=== PATIENT | female | born 1990 | race Caucasian/White ===

== ENCOUNTER 2018-12-04 08:00 | Outpatient (CLI) | payer MEDICAID ==
[2018-12-04 21:47] LABS: CANDIDA KRUSEI DNA NEGATIVE (NEGATIVE)
[2018-12-04 21:48] LABS: CANDIDA GROUP DNA NEGATIVE (NEGATIVE); TRICHOMONAS VAGINALIS DNA NEGATIVE (NEGATIVE)
== END 2018-12-04 23:59 | disposition home or self-care (01) ==
LOC: LAB.R 08:00
PROVIDERS: ATTEND Obstetrics & Gynecology
DX: N89.9 Noninflammatory disorder of vagina, unspecified (principal); F41.1 Generalized anxiety disorder
CPT/HCPCS: 36415; 80048; 84443; 85025; 87661; 87801

== ENCOUNTER 2018-12-04 08:00 | Outpatient (CLI) | payer MEDICAID ==
[2018-12-04 19:05] LABS: BASOPHILS % (AUTO) 0.6 %; EOSINOPHILS # (AUTO) 0.2 10^3/uL (0.0-0.7); EOSINOPHILS % (AUTO) 2.7 %; HGB - HEMOGLOBIN 14.7 g/dL (12.0-16.0); LYMPHOCYTES # (AUTO) 2.2 10^3/uL (1.5-3.5); LYMPHOCYTES % (AUTO) 28.1 %; MEAN CORPUSCULAR HEMOGLOBIN 31.1 pg (27.0-31.0); MEAN CORPUSCULAR HGB CONC 33.8 g/dL (32.0-36.0); MEAN PLATELET VOLUME 8.2 fL (7.9-10.8); MONOCYTES # (AUTO) 0.6 10^3/uL (0.0-1.0); MONOCYTES % (AUTO) 7.8 %; NEUTROPHILS # (AUTO) 4.9 10^3/uL (1.5-6.6); NEUTROPHILS % (AUTO) 60.8 %; PLT - PLATELET COUNT 327 10^3/uL (130-450); RED BLOOD COUNT 4.74 10^6/uL (4.20-5.40); RED CELL DISTRIBUTION WIDTH 12.9 % (12.0-15.0)
[2018-12-04 19:20] LABS: CALCIUM 9.7 mg/dL (8.5-10.3); CREATININE 0.6 mg/dL (0.4-1.0)
== END 2018-12-04 23:59 | disposition home or self-care (01) ==
LOC: LAB.N 08:00
PROVIDERS: ATTEND Physician Assistant Medical
DX: F41.1 Generalized anxiety disorder (principal)
CPT/HCPCS: 36415; 80048; 84443; 85025

== ENCOUNTER 2019-08-22 12:20 | Outpatient (CLI) | payer MEDICAID ==
--- NOTE | 2019-08-22 16:57 | XRAY Report ---
Reason: SHOULDER PAIN, LEFT Procedure Date: 08/22/2019 Accession Number: [id number] / [id number] Procedure: XR - Shoulder 3 View LT CPT Code: Final Report FULL RESULT: EXAM: LEFT SHOULDER RADIOGRAPHY EXAM DATE: 08/22/2019 12:46 PM. CLINICAL HISTORY: Chronic left shoulder pain. No injury. COMPARISON: None. TECHNIQUE: 3 views. FINDINGS: Bones: No fracture or bone destructive process. Joints: No subluxation. Glenohumeral and acromioclavicular joints are preserved. Soft tissues: No periarticular calcifications. IMPRESSION: 1. Negative. No significant bony or articular abnormality identified. [facility]
== END 2019-08-22 12:21 | disposition home or self-care (01) ==
LOC: DI 12:20
PROVIDERS: ATTEND Physician Assistant Medical
DX: M25.512 Pain in left shoulder (principal)

== ENCOUNTER 2019-08-30 08:00 | Outpatient (CLI) | payer MEDICAID ==
[2019-08-30 18:44] LABS: BILIRUBIN,URINE NEGATIVE (NEGATIVE); GLUCOSE, URINE (UA) 250 mg/dL (NEGATIVE); KETONES,URINE (UA) NEGATIVE (NEGATIVE); LEUKOCYTE ESTERASE, URINE MODERATE (NEGATIVE); NITRITE,URINE POSITIVE (NEGATIVE); OCCULT BLOOD,URINE LARGE (NEGATIVE)
[2019-08-30 19:10] LABS: CLARITY,URINE HAZY (CLEAR)
[2019-08-30 19:11] LABS: BACTERIA,URINE Few /HPF (None Seen); SQUAMOUS EPITHELIAL CELL,UR MANY Squamous (<= Few); WBC CLUMPS,URINE PRESENT
== END 2019-08-30 23:59 | disposition home or self-care (01) ==
LOC: LAB.R 08:00
PROVIDERS: ATTEND Physician Assistant Medical
DX: R30.0 Dysuria (principal)
CPT/HCPCS: 81001; 81003; 87086

== ENCOUNTER 2019-09-20 09:58 | Outpatient (CLI) | payer MEDICAID ==
--- NOTE | 2019-09-20 13:54 | XRAY Report ---
Reason: LEFT KNEE PAIN Procedure Date: 09/20/2019 Accession Number: [id number] / [id number] Procedure: XR - Knee 3 View LT CPT Code: Final Report FULL RESULT: EXAM: LEFT KNEE RADIOGRAPHY EXAM DATE: 09/20/2019 10:19 AM. CLINICAL HISTORY: LEFT KNEE PAIN. COMPARISON: None. TECHNIQUE: 3 views. FINDINGS: Bones: Normal. No fractures or bone lesions. Joints: Normal. No effusion. No subluxations. Soft Tissues: Normal. No soft tissue swelling. IMPRESSION: Normal knee radiography. [facility]
== END 2019-09-20 09:59 | disposition home or self-care (01) ==
LOC: DI 09:58
PROVIDERS: ATTEND Physician Assistant Medical
DX: M25.562 Pain in left knee (principal)

== ENCOUNTER 2019-10-29 08:00 | Outpatient (CLI) | payer MEDICAID ==
[2019-10-29 18:03] LABS: BILIRUBIN,URINE NEGATIVE (NEGATIVE); GLUCOSE, URINE (UA) NEGATIVE (NEGATIVE); KETONES,URINE (UA) NEGATIVE (NEGATIVE); LEUKOCYTE ESTERASE, URINE SMALL (NEGATIVE); NITRITE,URINE NEGATIVE (NEGATIVE); OCCULT BLOOD,URINE TRACE-INTA (NEGATIVE); PH,URINE 6.5 PH (5.0-7.5); PROTEIN,URINE NEGATIVE (NEGATIVE); UROBILINOGEN,URINE 0.2 (NORMAL) E.U./dL (NORMAL)
[2019-10-29 18:04] LABS: CLARITY,URINE CLEAR (CLEAR)
[2019-10-29 18:11] LABS: BACTERIA,URINE None Seen /HPF (None Seen); RBC,URINE 0-5 /HPF (0-5); SQUAMOUS EPITHELIAL CELL,UR FEW Squamous (<= Few)
== END 2019-10-29 23:59 | disposition home or self-care (01) ==
LOC: LAB.R 08:00
PROVIDERS: ATTEND Nurse Practitioner
DX: R30.0 Dysuria (principal)
CPT/HCPCS: 81001; 81003; 87086

== ENCOUNTER 2019-10-30 08:00 | Outpatient (CLI) | payer MEDICAID ==
[2019-10-30 16:48] LABS: BASOPHILS % (AUTO) 0.5 %; EOSINOPHILS # (AUTO) 0.2 10^3/uL (0.0-0.7); EOSINOPHILS % (AUTO) 2.1 %; HGB - HEMOGLOBIN 15.6 g/dL (12.0-16.0); LYMPHOCYTES # (AUTO) 1.1 10^3/uL (1.5-3.5); LYMPHOCYTES % (AUTO) 14.7 %; MEAN CORPUSCULAR HEMOGLOBIN 31.4 pg (27.0-31.0); MEAN CORPUSCULAR HGB CONC 33.6 g/dL (32.0-36.0); MEAN CORPUSCULAR VOLUME 93.4 fL (81.0-99.0); MEAN PLATELET VOLUME 9.7 fL (7.9-10.8); MONOCYTES # (AUTO) 0.4 10^3/uL (0.0-1.0); MONOCYTES % (AUTO) 5.5 %; NEUTROPHILS % (AUTO) 76.8 %; PLT - PLATELET COUNT 337 10^3/uL (130-450); RED BLOOD COUNT 4.97 10^6/uL (4.20-5.40); RED CELL DISTRIBUTION WIDTH 12.5 % (12.0-15.0); WHITE BLOOD COUNT 7.8 x10^3/uL (4.8-10.8)
[2019-10-30 17:53] LABS: ALBUMIN 5.1 g/dL (3.2-5.5); ALBUMIN/GLOBULIN RATIO 1.8 (1.0-2.2); BILIRUBIN,TOTAL 0.9 mg/dL (0.2-1.0); CALCIUM 9.9 mg/dL (8.5-10.3); CREATININE 0.7 mg/dL (0.4-1.0)
== END 2019-10-30 23:59 | disposition home or self-care (01) ==
LOC: LAB.WCP 08:00
PROVIDERS: ATTEND Nurse Practitioner
DX: Z00.00 Encounter for general adult medical examination without abnormal findings (principal); F41.1 Generalized anxiety disorder
CPT/HCPCS: 36415; 80053; 84443; 85025

== ENCOUNTER 2019-11-03 02:16 | Outpatient (CLI) | payer MEDICAID | END 2019-11-03 02:17 | disposition EMS.NT | LOC: EMS 02:16 | PROVIDERS: ATTEND Surgery | DX: R42 Dizziness and giddiness (principal); F41.9 Anxiety disorder, unspecified ==

== ENCOUNTER 2019-11-29 10:30 | Outpatient (CLI) | payer MEDICAID | END 2019-11-29 23:59 | disposition home or self-care (01) | LOC: LAB.WCP 10:30 | PROVIDERS: ATTEND Family Medicine | DX: R30.0 Dysuria (principal) | CPT/HCPCS: 87086 ==

== ENCOUNTER 2020-03-03 11:50 | Outpatient (CLI) | payer MEDICAID | END 2020-03-03 23:59 | disposition home or self-care (01) | LOC: COV 11:50 | PROVIDERS: ATTEND Family Medicine | DX: R50.9 Fever, unspecified (principal); R05 Cough; M79.10 Myalgia, unspecified site; R53.83 Other fatigue; J02.9 Acute pharyngitis, unspecified; R43.9 Unspecified disturbances of smell and taste; R09.81 Nasal congestion; Z20.828 Contact with and (suspected) exposure to other viral communicable diseases ==

== ENCOUNTER 2020-07-01 12:43 | Outpatient (CLI) | payer MEDICAID ==
[2020-07-03 21:03] LABS: ANA SCREEN NEGATIVE (NEGATIVE)
== END 2020-07-01 12:44 | disposition home or self-care (01) ==
LOC: LAB 12:43
PROVIDERS: ATTEND Family Medicine
DX: M53.3 Sacrococcygeal disorders, not elsewhere classified (principal); M54.9 Dorsalgia, unspecified
CPT/HCPCS: 36415; 85651; 86038; 86140

== ENCOUNTER 2020-07-02 09:56 | Outpatient (CLI) | payer MEDICAID ==
--- NOTE | 2020-07-02 11:42 | XRAY Report ---
PROCEDURE: SI Joints INDICATIONS: BACK PAIN,SCOLIOSIS,SACROILIAC JOINT PAIN,BILAT TECHNIQUE: 3 views of the sacroiliac joints were acquired. COMPARISON: None FINDINGS: Bones: No bony erosions or ankylosis. No suspicious bony lesions. No fractures. Soft tissues: Overlying bowel gas pattern is normal. No suspicious soft tissue densities. IUD note d. IMPRESSION: No degenerative changes or other significant abnormality of the sacroiliac joints or sacrum. Reviewed by: Hudson Edgar MD on 07/02/2020 10:41 AM [facility] Approved by: Hudson Edgar MD on 07/02/2020 10:41 AM [facility] Station ID: [id number]
--- NOTE | 2020-07-02 11:48 | XRAY Report ---
PROCEDURE: Spine Scoliosis Study 2-3V INDICATIONS: BACK PAIN TECHNIQUE: Frontal and lateral standing views of the spine acquired. COMPARISON: None. FINDINGS: There is no significant scoliotic curvature in the thoracic or lumbar spine. Vertebral body height an d alignment are normal. Intervertebral disc spaces are congruent and maintained. No significant degen erative changes. No suspicious lytic or blastic osseous lesion. No evidence of pars defect. IMPRESSION: Unremarkable thoracic and lumbar spine regressed with no evidence of scoliosis or significant degener ative change. Reviewed by: Hudson Edgar MD on 07/02/2020 10:47 AM [facility] Approved by: Hudson Edgar MD on 07/02/2020 10:47 AM [facility] Station ID: [id number]
== END 2020-07-02 09:57 | disposition home or self-care (01) ==
LOC: DI 09:56
PROVIDERS: ATTEND Family Medicine
DX: M54.9 Dorsalgia, unspecified (principal); M41.9 Scoliosis, unspecified; M53.3 Sacrococcygeal disorders, not elsewhere classified

== ENCOUNTER 2020-10-20 09:25 | Outpatient (CLI) | payer MEDICAID, OTHER ==
[2020-10-22 15:22] LABS: NIL 0.04 IU/mL; TB1-NIL 0.01 IU/mL
== END 2020-10-20 23:59 | disposition home or self-care (01) ==
LOC: LAB.WCP 09:25
PROVIDERS: ATTEND Family Medicine
DX: Z11.1 Encounter for screening for respiratory tuberculosis (principal)
CPT/HCPCS: 36415; 86480

== ENCOUNTER 2021-04-03 08:00 | Outpatient (CLI) | payer OTHER ==
[2021-04-03 18:43] LABS: BASOPHILS % (AUTO) 0.3 %; HCT - HEMATOCRIT 46.6 % (37.0-47.0); HGB - HEMOGLOBIN 15.7 g/dL (12.0-16.0); LYMPHOCYTES # (AUTO) 1.3 10^3/uL (1.5-3.5); LYMPHOCYTES % (AUTO) 20.8 %; MEAN CORPUSCULAR HEMOGLOBIN 31.1 pg (27.0-31.0); MEAN CORPUSCULAR HGB CONC 33.7 g/dL (32.0-36.0); MEAN CORPUSCULAR VOLUME 92.3 fL (81.0-99.0); MEAN PLATELET VOLUME 9.7 fL (7.9-10.8); MONOCYTES # (AUTO) 0.6 10^3/uL (0.0-1.0); NEUTROPHILS # (AUTO) 4.5 10^3/uL (1.5-6.6); NEUTROPHILS % (AUTO) 69.6 %; PLT - PLATELET COUNT 288 10^3/uL (130-450); RED BLOOD COUNT 5.05 10^6/uL (4.20-5.40); RED CELL DISTRIBUTION WIDTH 12.4 % (12.0-15.0); WHITE BLOOD COUNT 6.4 x10^3/uL (4.8-10.8)
[2021-04-03 18:47] LABS: BILIRUBIN,URINE NEGATIVE (NEGATIVE); GLUCOSE, URINE (UA) NEGATIVE (NEGATIVE); KETONES,URINE (UA) NEGATIVE (NEGATIVE); LEUKOCYTE ESTERASE, URINE NEGATIVE (NEGATIVE); NITRITE,URINE NEGATIVE (NEGATIVE); OCCULT BLOOD,URINE NEGATIVE (NEGATIVE); PH,URINE 6.5 PH (5.0-7.5); PROTEIN,URINE NEGATIVE (NEGATIVE); UROBILINOGEN,URINE 0.2 (NORMAL) E.U./dL (NORMAL)
[2021-04-03 20:22] LABS: ALBUMIN 4.7 g/dL (3.2-5.5); ALBUMIN/GLOBULIN RATIO 1.5 (1.0-2.2); ALKALINE PHOSPHATASE 48 IU/L (42-121); ALT ALANINE AMINOTRANSFERASE 15 IU/L (10-60); AST ASPARTATE AMINOTRANSFERASE 15 IU/L (10-42); BACTERIA,URINE None Seen /HPF (None Seen); BILIRUBIN,TOTAL 0.7 mg/dL (0.2-1.0); BUN - BLOOD UREA NITROGEN 18 mg/dL (6-20); CALCIUM 9.8 mg/dL (8.5-10.3); CARBON DIOXIDE - CO2 27 mmol/L (21-32); CHLORIDE 101 mmol/L (101-111); CHOL/HDL RATIO 2.2 (<4.4); CHOLESTEROL 191 mg/dL; CLARITY,URINE CLEAR (CLEAR); CREATININE 0.6 mg/dL (0.4-1.0); FREE T4 (FREE THYROXINE) 0.95 ng/dL (0.58-1.64); GFR - MDRD 117 (>89); GLUCOSE 86 mg/dL (70-100); HDL CHOLESTEROL 88 mg/dL; POTASSIUM 4.5 mmol/L (3.5-5.0); PROLACTIN 6.44 ng/mL; RBC,URINE 0-5 /HPF (0-5); SODIUM 139 mmol/L (135-145); SQUAMOUS EPITHELIAL CELL,UR FEW Squamous (<= Few); THYROID STIMULATING HORMONE 1.19 uIU/mL (0.34-5.60); TOTAL PROTEIN 7.8 g/dL (6.7-8.2); TRIGLYCERIDES 22 mg/dL; WBC,URINE 0-3 /HPF (0-5)
== END 2021-04-03 23:59 | disposition home or self-care (01) ==
LOC: LAB.WCP 08:00
PROVIDERS: ATTEND Nurse Practitioner
DX: R53.83 Other fatigue (principal); Z13.220 Encounter for screening for lipoid disorders; N64.3 Galactorrhea not associated with childbirth
CPT/HCPCS: 36415; 80053; 80061; 81001; 83721; 84146; 84439; 84443; 85025; 87086

== ENCOUNTER 2022-10-19 09:31 | Outpatient (CLI) | payer OTHER ==
[2022-10-19 11:48] LABS: BASOPHILS % (AUTO) 0.6 %; HCT - HEMATOCRIT 43.7 % (37.0-47.0); LYMPHOCYTES # (AUTO) 1.2 10^3/uL (1.5-3.5); MEAN CORPUSCULAR HEMOGLOBIN 31.6 pg (27.0-31.0); MEAN CORPUSCULAR HGB CONC 34.3 g/dL (32.0-36.0); MEAN PLATELET VOLUME 9.5 fL (7.9-10.8); MONOCYTES # (AUTO) 0.4 10^3/uL (0.0-1.0); MONOCYTES % (AUTO) 5.9 %; NEUTROPHILS # (AUTO) 5.1 10^3/uL (1.5-6.6); NEUTROPHILS % (AUTO) 75.1 %; PLT - PLATELET COUNT 354 10^3/uL (130-450); RED BLOOD COUNT 4.75 10^6/uL (4.20-5.40); RED CELL DISTRIBUTION WIDTH 12.5 % (12.0-15.0); WHITE BLOOD COUNT 6.7 x10^3/uL (4.8-10.8)
[2022-10-19 12:07] LABS: ALBUMIN 4.5 g/dL (3.2-5.5); ALBUMIN/GLOBULIN RATIO 1.6 (1.0-2.2); ALKALINE PHOSPHATASE 46 IU/L (42-121); ALT ALANINE AMINOTRANSFERASE 15 IU/L (10-60); AST ASPARTATE AMINOTRANSFERASE 16 IU/L (10-42); BILIRUBIN,TOTAL 0.8 mg/dL (0.2-1.0); BUN - BLOOD UREA NITROGEN 16 mg/dL (6-20); CALCIUM 9.5 mg/dL (8.5-10.3); CARBON DIOXIDE - CO2 27 mmol/L (21-32); CHLORIDE 103 mmol/L (101-111); CHOL/HDL RATIO 2.4 (<4.4); CHOLESTEROL 173 mg/dL; CREATININE 0.7 mg/dL (0.4-1.0); GFR - MDRD 98 (>89); GLUCOSE 88 mg/dL (70-100); HDL CHOLESTEROL 71 mg/dL; POTASSIUM 4.4 mmol/L (3.5-5.0); SODIUM 137 mmol/L (135-145); TOTAL PROTEIN 7.4 g/dL (6.7-8.2); TRIGLYCERIDES 34 mg/dL
[2022-10-19 12:23] LABS: THYROID STIMULATING HORMONE 1.25 uIU/mL (0.34-5.60)
[2022-10-19 12:30] LABS: ESTIMATED AVERAGE GLUCOSE 82 mg/dL (70-100); HEMOGLOBIN A1c% 4.5 % (4.27-6.07)
== END 2022-10-19 09:32 | disposition home or self-care (01) ==
LOC: LAB.N 09:31
PROVIDERS: ATTEND Nurse Practitioner
DX: R53.83 Other fatigue (principal); Z13.220 Encounter for screening for lipoid disorders; R63.5 Abnormal weight gain; R63.2 Polyphagia
CPT/HCPCS: 36415; 80053; 80061; 83036; 83721; 84443; 85025

== ENCOUNTER 2023-02-16 12:38 | Outpatient (CLI) | payer OTHER ==
[2023-02-17 18:07] LABS: ANTI-DNA (DS) AB QN <1 IU/mL (0-9)
[2023-02-18 18:08] LABS: ANTINUCLEAR ANTIBODIES IFA Negative (.)
== END 2023-02-16 12:39 | disposition home or self-care (01) ==
LOC: LAB.N 12:38
PROVIDERS: ATTEND Nurse Practitioner
DX: M35.3 Polymyalgia rheumatica (principal)
CPT/HCPCS: 36415; 86038; 86225

== ENCOUNTER 2023-03-04 08:00 | Outpatient (CLI) | payer OTHER ==
[2023-03-04 17:25] LABS: BILIRUBIN,URINE NEGATIVE (NEGATIVE); GLUCOSE, URINE (UA) NEGATIVE (NEGATIVE); KETONES,URINE (UA) NEGATIVE (NEGATIVE); LEUKOCYTE ESTERASE, URINE NEGATIVE (NEGATIVE); NITRITE,URINE NEGATIVE (NEGATIVE); OCCULT BLOOD,URINE NEGATIVE (NEGATIVE); PH,URINE 6.5 PH (5.0-7.5); PROTEIN,URINE NEGATIVE (NEGATIVE); UROBILINOGEN,URINE 0.2 (NORMAL) E.U./dL (NORMAL)
[2023-03-04 19:01] LABS: CLARITY,URINE CLEAR (CLEAR); RBC,URINE None Seen /HPF (0-5); SQUAMOUS EPITHELIAL CELL,UR FEW Squamous (<= Few); WBC,URINE 0-3 /HPF (0-5)
[2023-03-04 19:02] LABS: BACTERIA,URINE Rare /HPF (None Seen)
== END 2023-03-04 23:59 | disposition home or self-care (01) ==
LOC: LAB 08:00
PROVIDERS: ATTEND Urology
DX: N30.10 Interstitial cystitis (chronic) without hematuria (principal)
CPT/HCPCS: 81001; 87086

== ENCOUNTER 2023-03-08 16:42 | Outpatient (CLI) | payer OTHER ==
--- NOTE | 2023-03-09 11:53 | Ultrasound Report ---
PROCEDURE: Pelvic w/Transvaginal INDICATIONS: CHRONIC PELVIC PAIN TECHNIQUE: Real-time scanning was performed of the pelvic organs, with image documentation. Additional endovagi nal scanning was necessary due to incomplete visualization of the adnexal and endometrial structures by transabdominal scanning. COMPARISON: None. FINDINGS: Uterus: Uterus is anteverted and normal in size at 8.6 x 3.3 x 5.0 cm. The myometrium is homogeneou s. The endometrium measures 8.2 mm in combined thickness. There is a single linear echogenic focus extending from the anterior fundal endometrial a few the junctional zone measuring about 5 mm. No pos terior shadowing. No other echogenic foci within the junctional zone or myometrium. There is a small hypoechoic mass measuring up to 1.2 cm in the right anterior myometrium consistent with a fibroid. No rmal vascular flow in the uterus. Ovaries: The right ovary measures 3.6 x 1.8 x 1.1 cm, with a calculated ovarian volume of 4.0 cc. T he left ovary measures 2.6 x 1.7 x 2.6 cm, with a calculated ovarian volume of 6.5 cc. The ovaries h ave a normal sonographic appearance. There are several, probably greater than 12 follicles in the le ft ovary. The right ovary was less well seen.. No adnexal masses are seen. No cystic lesions measuri ng greater than 3 cm. Other: No pathologic free abdominal or pelvic fluid. Trace physiologic cul-de-sac fluid. IMPRESSION: 1. There is a single nonspecific echogenic focus in the anterior junctional zone. This is most likely dystrophic calcification, less likely ectopic endometrium. There are no other findings of adenomyosi s. 2. Greater than 12 follicles in a normal-sized left ovary. This can be physiologic, however in the cl inical setting of hyperandrogenism, this may be characteristic of polycystic ovarian syndrome. Correl ate with lab values is recommended. 3. Probably incidental 1.2 cm right intramural fibroid. Reviewed by: Shannon Fletcher MD on 03/09/2023 11:52 AM PDT Approved by: Shannon Fletcher MD on 03/09/2023 11:52 AM PDT Station ID: [id number]
== END 2023-03-08 16:43 | disposition home or self-care (01) ==
LOC: DI 16:42
PROVIDERS: ATTEND Nurse Practitioner
DX: R10.2 Pelvic and perineal pain (principal)

== ENCOUNTER 2023-03-25 13:59 | Outpatient (CLI) | payer OTHER ==
[2023-03-25 18:17] LABS: CA 125 18.3 U/mL (0.5-35.0)
[2023-03-28 13:10] LABS: ESTRADIOL 45.9 pg/mL (.)
[2023-03-29 15:09] LABS: FREE TESTOSTERONE(DIRECT) 3.3 pg/mL (0.0-4.2)
== END 2023-03-25 14:00 | disposition home or self-care (01) ==
LOC: LAB.N 13:59
PROVIDERS: ATTEND Surgery Vascular Surgery
DX: R10.2 Pelvic and perineal pain (principal); G89.29 Other chronic pain
CPT/HCPCS: 36415; 82670; 83001; 84402; 84403; 86304

== ENCOUNTER 2024-04-09 18:56 | Emergency (ER) | payer OTHER ==
[2024-04-09 19:25] VITALS: BP 164/109; O2SAT 99
[2024-04-09 19:33] LABS: BILIRUBIN,URINE NEGATIVE (NEGATIVE); GLUCOSE, URINE (UA) NEGATIVE (NEGATIVE); KETONES,URINE (UA) NEGATIVE (NEGATIVE); LEUKOCYTE ESTERASE, URINE NEGATIVE (NEGATIVE); NITRITE,URINE NEGATIVE (NEGATIVE); OCCULT BLOOD,URINE NEGATIVE (NEGATIVE); PH,URINE 6.5 PH (5.0-7.5); PROTEIN,URINE NEGATIVE (NEGATIVE); UROBILINOGEN,URINE 0.2 (NORMAL) E.U./dL (NORMAL)
[2024-04-09 19:34] LABS: CLARITY,URINE CLEAR (CLEAR)
[2024-04-09 19:35] LABS: HCG UR QUAL NEGATIVE
[2024-04-09 19:41] LABS: BASOPHILS % (AUTO) 0.6 %; EOSINOPHILS # (AUTO) 0.2 10^3/uL (0.0-0.7); EOSINOPHILS % (AUTO) 2.2 %; HCT - HEMATOCRIT 44.8 % (37.0-47.0); HGB - HEMOGLOBIN 15.5 g/dL (12.0-16.0); LYMPHOCYTES # (AUTO) 1.7 10^3/uL (1.5-3.5); LYMPHOCYTES % (AUTO) 24.8 %; MEAN CORPUSCULAR HEMOGLOBIN 31.3 pg (27.0-31.0); MEAN CORPUSCULAR HGB CONC 34.6 g/dL (32.0-36.0); MEAN CORPUSCULAR VOLUME 90.5 fL (81.0-99.0); MEAN PLATELET VOLUME 8.4 fL (7.9-10.8); MONOCYTES # (AUTO) 0.3 10^3/uL (0.0-1.0); MONOCYTES % (AUTO) 4.6 %; NEUTROPHILS # (AUTO) 4.7 10^3/uL (1.5-6.6); NEUTROPHILS % (AUTO) 67.5 %; PLT - PLATELET COUNT 311 10^3/uL (130-450); RED BLOOD COUNT 4.95 10^6/uL (4.20-5.40); RED CELL DISTRIBUTION WIDTH 11.4 % (12.0-15.0)
--- NOTE | 2024-04-09 19:45 | ED Physician Documentation ---
History of Present Illness - Stated complaint Stated Complaint: LT SIDE PX - Chief complaint Chief Complaint: General - Additonal information Additional information: 34-year-old female with history of endometriosis adenomyosis and was recently diagnosed with having some pelvic venous abnormalities which has led to her following up with [facility] nephrology team and patient says that she is going to need a left-sided nephrectomy soon. Patient says today while she was sitting in a vehicle with her on her way home from [facility] at rest and in a very calm situations started to experience sudden onset left-sided paresthesias. Patient says that it lasted briefly and she started to experience a mild headache with the symptoms and left eye vision changes. No nausea or vomiting no recent illnesses no fevers or chills. Patient says that she has experienced this in the past which is why she is coming to the ER because she wants to make sure that there is nothing else wrong. She also said for an episode of time she had left flank cramping sensation. Currently right now she is not experiencing the symptoms she says that she is feeling better but she just wanted to get checked out because her grandma had multiple mini strokes when she was a young girl and wanted to make sure this is a neck something that she was experiencing. No focal neurological deficits she had no weakness on one side of her body she is able to ambulate without any difficulty no aphasia or confusion. Patient says that she does have ADD so she is normally a very fast thinker but she did feel like for a brief moment of time her thinking felt more dazed and slow. PD PAST MEDICAL HISTORY - Past Medical History Past Medical History: Yes : Other - Past Surgical History Past Surgical History: No - Allergies Allergies/Adverse Reactions: Allergies Allergy/AdvReac Type Severity Reaction Status Date / Time No Known Drug Allergies Allergy Verified 04/09/24 19:15 - Social History Does the pt smoke?: No Smoking Status: Never smoker Does the pt drink ETOH?: No Does the pt have substance abuse?: No - Immunizations Immunizations are current?: Yes - POLST Patient has POLST: No PD ED PE NORMAL - Vitals Vital signs reviewed: Yes - General General: Alert and oriented X 3, No acute distress, Well developed/nourished - HEENT HEENT: Atraumatic, PERRL, EOMI, Moist mucous membranes - Cardiac Cardiac: RRR, No murmur, No gallop, No rub, Strong equal pulses - Respiratory Respiratory: No respiratory distress, Clear bilaterally - Abdomen Abdomen: Normal bowel sounds, Soft, Non tender, No organomegaly - Back Back: No CVA TTP - Derm Derm: Normal color, Warm and dry, No rash - Extremities Extremities: No deformity, No tenderness to palpate, Normal ROM s pain, No edema, No calf tenderness / cord - Neuro Neuro: Alert and oriented X 3, 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 No: Confused, Disoriented, Lethargic, Obtunded, Weakness, Abnormal sensation, CN deficit, Dyscongugate gaze, Aphasia, Dysarthria - Psych Psych: Tearful Results - Vitals Vitals: Vital Signs - 24 hr 04/09/24 19:16 Temperature 36.9 C Heart Rate 111 H Respiratory 22 Rate Blood Pressure 164/109 H O2 Saturation 99 Oxygen O2 Source Nasal cannula - Labs Labs: Laboratory Tests 04/09/24 04/09/24 04/09/24 19:20 19:30 19:30 WBC 7.0 RBC 4.95 Hgb 15.5 Hct 44.8 MCV 90.5 MCH 31.3 H MCHC 34.6 RDW 11.4 L Plt Count 311 MPV 8.4 Neut # (Auto) 4.7 Lymph # (Auto) 1.7 [place] # (Auto) 0.3 Eos # (Auto) 0.2 Baso # (Auto) 0.0 Absolute Nucleated RBC 0.00 Nucleated RBC % 0.0 Sodium 137 Potassium 3.8 Chloride 101 Carbon Dioxide 28 Anion Gap 8.0 BUN 17 Creatinine 0.8 Estimated GFR (MDRD) 83 L Glucose 93 Calcium 10.2 Total Bilirubin 0.4 AST 14 ALT 13 Alkaline Phosphatase 52 Total Protein 7.3 Albumin 4.9 Globulin 2.4 Albumin/Globulin Ratio 2.0 Lipase 19 Urine Color LIGHT YELLOW Urine Clarity CLEAR Urine pH 6.5 Ur Specific [place] <=1.005 Urine Protein NEGATIVE Urine Glucose (UA) NEGATIVE Urine Ketones NEGATIVE Urine Occult Blood NEGATIVE Urine Nitrite NEGATIVE Urine Bilirubin NEGATIVE Urine Urobilinogen 0.2 (NORMAL) Ur Leukocyte Esterase NEGATIVE Ur Microscopic Review NOT INDICATED Urine Culture Comments NOT INDICATED Urine HCG, Qual NEGATIVE PD Medical Decision Making - ED course ED course: 34-year-old female presents emergency department for concerns of left-sided paresthesias. Patient says that she has had a long road in terms of her health journey these last couple years getting diagnosed with endometriosis adenomyosis and is very tearful throughout the interview. Patient says that she is worried that she is having a stroke after physical exam NIH score is 0 she is completely neurologically intact patient is reassured after this information. Urinalysis is unremarkable labs are also found to be unremarkable including hematology and chemistry. I informed the patient that I be more than happy to do a head CT for further evaluation to rule out any sort of intracranial abnormalities or findings but I did inform her that this would not be looking at the microvascular structure of her brain which would be something that an MRI would be helpful for her but unfortunately patient does not meet criteria for an emergent brain MRI and we do not currently have MRI due to the hours. Patient said that after hearing that her labs her urine and her physical exam are normal she is very reassured and said that she does not want to the pursue the head CT at this point time. Patient is told to keep a log of when these paresthesias are happening how often they are happening and to follow-up with her primary care provider for more outpatient workup for this and to see if there is any other outpatient labs and test that they can pursue. Return precautions have been given patient understands and she is safe for discharge at this time. Departure - Departure Disposition: 01 Home, Self Care Clinical Impression: Paresthesia of left upper and lower extremity Instructions: ED Paraesthesias Comments: Thank you for trusting us with your care. I am sorry that you have had such a long journey with all of her medical issues but I am very reassured that you are in such great hands at [facility]. As we discussed to have a very low suspicion that you are experiencing stroke symptoms or an active stroke. If you start to develop any slurred speech weakness on one side your body difficulty communicating or sudden severe confusion that is obvious to friends and family then please come back to the emergency department immediately. Please follow-up with your primary care provider about today's ER visit to see if there is any additional outpatient labs that they would suggest such as vitamin B12 and start to keep a log of when you start to notice these paresthesias also known as numbness and tingling. Forms: PCP List Discharge Date/Time: 04/09/24 20:27
[2024-04-09 19:54] LABS: ALBUMIN 4.9 g/dL (3.2-5.5); BILIRUBIN,TOTAL 0.4 mg/dL (0.2-1.0); CALCIUM 10.2 mg/dL (8.5-10.3); CREATININE 0.8 mg/dL (0.6-1.3); POTASSIUM 3.8 mmol/L (3.5-4.5); TOTAL PROTEIN 7.3 g/dL (6.4-8.9)
== END 2024-04-09 20:27 | disposition home or self-care (01) ==
LOC: ED 18:56
DX: R20.2 Paresthesia of skin (principal); R51.9 Headache, unspecified; R10.32 Left lower quadrant pain
CPT/HCPCS: 36415; 80053; 81001; 81003; 81025; 83690; 85025; 87086; 99283; 99284